=== PATIENT | male | born 1990 | race Caucasian/White ===

== ENCOUNTER 2021-11-27 16:31 | Emergency (ER) | payer OTHER ==
[~2021-11-27] VITALS: Ht 172.7 cm; Wt 92.3 kg
[2021-11-27] MEDS ORDERED: IBUPROFEN 600MG TAB PO ONE (18:20)
[2021-11-27] MEDS ORDERED: methocarbamoL 750 MG TAB PO ONE (18:20)
[2021-11-27] MEDS ORDERED: IBUP-1022 PO (18:21)
[2021-11-27] MEDS ORDERED: METH-1165 PO (18:21)
[2021-11-27 19:06] VITALS: BP 147/90
== END 2021-11-27 19:08 | disposition home or self-care (01) ==
LOC: M ED 16:31
DX: S16.1XXA Strain of muscle, fascia and tendon at neck level, initial encounter (principal); S50.02XA Contusion of left elbow, initial encounter; V49.49XA Driver injured in collision with other motor vehicles in traffic accident, initial encounter; Y92.410 Unspecified street and highway as the place of occurrence of the external cause